=== PATIENT | female | born 1985 | race Caucasian/White ===

== ENCOUNTER 2018-07-01 17:44 | Emergency (ER) | payer SELFPAY ==
[~2018-07-01] VITALS: Ht 175.3 cm; Wt 79.4 kg
[2018-07-01 17:53] VITALS: BP_SYST 125
[2018-07-01 18:29] LABS: BILIRUBIN,URINE NEGATIVE (NEGATIVE); BLOOD, URINE NEGATIVE (NEGATIVE); CLARITY/URINE SL CLOUDY (CLEAR); COLOR,URINE YELLOW (YELLOW); GLUCOSE,URINE NEGATIVE (NEGATIVE); KETONES,URINE NEGATIVE (NEGATIVE); LEUKOCYTE ESTERASE ,URINE 2+ (NEGATIVE); NITRITE, URINE POSITIVE (NEGATIVE); PROTEIN URINE 1+ (NEGATIVE); UROBILINOGEN,URINE 0.2 (0.2-1.0)
[2018-07-01 18:35] LABS: RBC,URINE 0-3 /HPF (0-3)
[2018-07-01 18:36] LABS: BACTERIA,URINE MANY /HPF (None Seen); WBC,URINE 20-50 /HPF (0-3)
[2018-07-01] MEDS ORDERED: cefTRIAXone 1 GM IVPB PREMIX 50 ML IV ONE (18:45)
[2018-07-01] MEDS ORDERED: AZITHROMYCIN 250 MG TABLET PO ONE (19:15)
[2018-07-01] MEDS ORDERED: PHENAZOPYRIDINE HCL 100 MG TABLET PO ONE (19:30)
[2018-07-01] MEDS ORDERED: cefTRIAXone 1 GM in LIDOCAINE 1%, 20 ML MDV 2.1 ML IM ONE ×2 (19:30→19:45)
[2018-07-01 21:05] VITALS: BP_SYST 138
[2018-07-05 00:22] LABS: CHLAMYDIA TRACHOMATIS NAA Negative (Negative); NEISSERIA GONORRHOEAE NAA Negative (Negative)
== END 2018-07-01 21:05 | disposition home or self-care (01) ==
LOC: SED 17:44
DX: N39.0 Urinary tract infection, site not specified (principal)
CPT/HCPCS: 81000; 81025; 87086; 87186; 87210; 87491; 87591; 99283; J0696; J2001; Q0144